=== PATIENT | male | born 1945 | race Caucasian/White ===

== ENCOUNTER 2016-06-27 13:54 | Inpatient (IN) | payer OTHER, MEDICARE ==
[~2016-06-27] VITALS: Ht 172.7 cm; Wt 80.6 kg
--- NOTE | ~2016-06-27 | HC ---
[facility] [place] [address] CONSULTATION Name: KARINAMILADY HOUSER Room #: 441-P [facility] IN M.R.#: [id number] Admission: 06/27/16 Attend Phys: Ankita Reina MD Discharge: 07/01/16 Date of : 41 Report #: [id number] THIS REPORT FOR: //name// CC: Beto Reina DATE OF SERVICE: 06/28/2016 PATIENT IDENTIFICATION: This 71-year-old man is well known to our service from his course with end-stage renal disease. He has diffuse atherosclerotic, status post multiple vascular procedures. He has presented to [facility] twice within the past 7 days with various complaints. He presents to [facility] today due to his frustration with his care. Specifically, he reports that he is short of breath. He does acknowledge; however, that he slept flat in bed through the night with no oxygen. He denies fevers, chills, sweats or other constitutional complaints. PAST MEDICAL HISTORY: Remarkable for diffuse atherosclerotic cardiovascular disease due to longstanding ongoing tobacco abuse. He has aortic stenosis, peripheral vascular disease, COPD. He has known diabetes mellitus. He has undergone previous carotid stent procedure. He has a documented ejection fraction of approximately 50% with basal and inferior hypokinesis and moderate aortic stenosis. MEDICATIONS: On admission include albuterol, allopurinol, aspirin, atorvastatin, Nephrocaps, Tums, carvedilol, Imdur, Nitrostat, Pred Forte eyedrops, Ranexa, Renvela. PERSONAL AND SOCIAL HISTORY: The patient reports that he quit smoking approximately 1 year ago. FAMILY HISTORY: Negative for renal disease. REVIEW OF SYSTEMS: Remarkable for dyspnea on exertion. He denies productive cough or hemoptysis. He denies recent chest pain or palpitations. He denies nausea, vomiting, diarrhea or constipation. PHYSICAL EXAMINATION: GENERAL: Reveals a well developed, chronically ill-appearing male, in no acute distress. VITAL SIGNS: Blood pressure 104/66, temperature 97.6, pulse , respirations 20, O2 saturation 97% on room air. SKIN: Warm and dry. There is no edema present. There is no evidence of cellulitis. HEENT: The head is normocephalic and atraumatic. The sclerae are white and [facility] [address] [place] [address] CONSULTATION Name: MILADY COLLINS Room #: 441-P [facility] IN ..#: [id number] Admission: 06/27/16 Attend Phys: Ankita Reina MD Discharge: 07/01/16 Date of : 41 Report #: [id number] conjunctivae are not injected. The pharynx is benign. NECK: Supple. LUNGS: Adame are grossly clear to percussion and auscultation. CARDIOVASCULAR: Reveals a regular rate and rhythm without rub. There is a grade 2 systolic murmur. ABDOMEN: Soft and nontender, without palpable mass or organomegaly. NEUROLOGIC: Reveals the patient to be alert and cooperative with a nonfocal exam. LABORATORY STUDIES: Available at this time, sodium 131, potassium 4.9, chloride 93, CO2 24, BUN 38, creatinine 6.5. White blood cell count 6400, hemoglobin 11.2, hematocrit 33.3, platelet count 138,000. ASSESSMENT: 1. Chronic obstructive pulmonary disease exacerbation with shortness of breath. There is no evidence of fluid overload at this time. He is showing no signs of need for acute dialysis. 2. End-stage renal disease, on maintenance hemodialysis. 3. Diffuse atherosclerotic. PLAN: We will follow the patient closely and plan dialysis with next regularly scheduled dialysis treatment on Thursday. We will follow him daily and monitor his status. Please see orders. By: 1217 [id number] Herman Stroud MD /nt
--- NOTE | ~2016-06-27 | H ---
[facility] [place] [address] HISTORY AND PHYSICAL Name: MILADY COLLINS Room #: 441-P ADM IN M.R.#: [id number] Admission: 06/27/16 Attend Phys: Ankita Reina MD Discharge: Date of : 41 Report #: [id number] THIS REPORT FOR: //name// CC: Beto Gomez [place] Ankita Reina DATE OF SERVICE: 06/27/2016 The patient is admitted to the hospital on 06/27/2016 CHIEF COMPLAINT: Shortness of breath. HISTORY OF PRESENT ILLNESS: The patient is a 71-year-old man with a very complicated past medical history, who is currently on hemodialysis for end-stage renal disease. He was recently treated at [facility]. The patient states that "his lungs were filled with fluid." He was dialyzed today, and he states that too much fluid taken off. The patient became progressively weak and short of breath. While here, his systolic blood pressure has been between 90 and 100. The patient feels weak and tired. His shortness of breath has already resolved. Chest x-ray that was taken here showed clear lungs. On EKG, the patient has atrial flutter. The patient has history of paroxysmal atrial fibrillation. He has no chest pain. Denies palpitations. PAST MEDICAL HISTORY: 1. End-stage renal disease. 2. Peripheral vascular disease. 3. Coronary artery disease, status post coronary artery bypass grafting surgery. 4. Paroxysmal atrial fibrillation. 5. Chronic obstructive pulmonary disease. 6. Congestive heart failure with diastolic dysfunction. In 01/2016, ejection fraction was 50%, hypokinetic left ventricle, grade 2 diastolic dysfunction. Pulmonary artery pressure 27. 7. Aortic stenosis. 8. Diabetes mellitus type 2. 9. Dyslipidemia. 10. Obstructive sleep apnea. CURRENT MEDICATIONS: Reviewed and documented in the patient's chart. FAMILY HISTORY: Reviewed and not pertinent to the patient's current condition. SOCIAL HISTORY: The patient quit smoking cigarettes over a year ago. He [facility] [address] [place] [address] HISTORY AND PHYSICAL Name: KARINAMILADY HOUSER Room #: [address] [place] [address] IN ..#: [id number] Admission: 06/27/16 Attend Phys: Ankita Reina MD Discharge: Date of : 41 Report #: [id number] reports occasional social alcohol intake. He lives with his . REVIEW OF SYSTEMS: As above in HPI section, all others negative. PHYSICAL EXAMINATION: GENERAL: The patient is an elderly man who is in no apparent distress. VITAL SIGNS: Blood pressure is 89/63, respiration is between 18 and 26, heart rate is 94, temperature is 97.9, and oxygen saturation is between 94 and 100% on room air. HEENT: Pupils are equal. Eye movements are normal. Sclerae are anicteric. NECK: Supple. The patient has no thyromegaly. He has mild JVD. Oral mucosa is moist. RESPIRATORY: Chest moves symmetrically with breathing. The patient has clear respiratory sounds bilaterally. CARDIOVASCULAR: The patient has regular rhythm and rate. He has no murmurs, gallops or rubs. GASTROINTESTINAL: Abdomen is soft, nondistended and nontender. Bowel sounds are present. The patient has no hepatomegaly or splenomegaly. MUSCULOSKELETAL: The patient has no edema, cyanosis or clubbing. Range of motion is normal. Pedal pulses are significantly diminished. NEUROLOGIC: The patient is alert and oriented x 3. SKIN: Reveals no acute skin lesions. LABORATORY DATA: Basic metabolic profile shows normal electrolytes. Creatinine is 4.6, BUN 19. Glucose is 114. AST is 135. Troponin is slightly up at 0.11. CBC with differential shows mild anemia, that is chronic, hemoglobin 10.9. MCV is 105. Platelets are slightly low at 146. On chest x-ray, the patient has clear lungs. EKG shows atrial flutter. ASSESSMENT AND PLAN: A 71-year-old man with multiple medical problems, including end-stage renal disease, who comes to the hospital with shortness of breath. 1. Shortness of breath 2. Acute on chronic problem. As noted, the patient was hospitalized at [facility] for volume overload. He was dialyzed, and last dialysis was this morning. Currently, chest x-ray is clear. Shortness of breath could be associated with generalized weakness and tiredness. His oxygen saturation is normal. The patient is not tachypneic, and now he feels well. He will be monitored. We will consult commercial horticulture instructor for further evaluation. 3. History of coronary artery disease, borderline troponin elevation, and atrial flutter. No chest pain at this time. Mild troponin elevation could be due to reduced creatinine clearance. We will follow serial troponin levels. The patient has history of paroxysmal atrial fibrillation, but in the past, he was in normal sinus rate when he was here. We will ask anesthesiologist assistant certified to evaluate the patient. 4. Chronic obstructive pulmonary disease. The patient has no wheezes, and his [facility] [address] [place] [address] HISTORY AND PHYSICAL Name: MILADY COLLINS Room #: 441-P [facility] IN M.R.#: [id number] Admission: 06/27/16 Attend Phys: Ankita Reina MD Discharge: Date of : 43 Report #: [id number] oxygen saturation is normal. No evidence of exacerbation. 5. Diabetes mellitus type 2. We will stop glipizide, and treat the patient with sliding scale insulin. Blood sugars will be checked before meal and before sleep. Sliding scale insulin at this time will be an alternative option. 6. Deep venous thrombosis prophylaxis. Subcutaneous heparin. <ELECTRONICALLY SIGNED> By: Ankita Reina MD 06/30/16 1247 03 40 Ankita Reina MD /nt
--- NOTE | ~2016-06-27 | HC ---
[facility] [place] [address] CONSULTATION Name: MILADY COLLINS Room #: 441-P ADM IN M.R.#: [id number] Admission: 06/27/16 Attend Phys: Ankita Reina MD Discharge: Date of : 43 Report #: [id number] THIS REPORT FOR: //name// CC: Beto Reina REASON FOR CONSULTATION: Shortness of breath. HISTORY OF PRESENT ILLNESS: The patient is a 71-year-old with an extensive cardiac history including coronary artery disease, aortic stenosis, peripheral vascular disease, COPD; end-stage renal disease, on dialysis, who was recently hospitalized at [facility] with shortness of breath. We do not have records from this visit. Apparently, he says he had fluid on the lungs. He was diuresed. He reports that he underwent a stress test and he thinks that this was normal. He also was found to have some gallstones. He was discharged on Thursday and then was undergoing dialysis yesterday and started experiencing worsening shortness of breath, some nausea and some weakness and therefore he was admitted to the hospital. He is currently without chest pain. He denies any exertional chest pain or chest pressure. He does report that a few weeks ago, he had some shortness of breath prior to the shower, he popped a nitroglycerin and this is improved. He denies any PND, orthopnea. He denies presyncope or syncope. REVIEW OF SYSTEMS: GENERAL: No fevers, chills. HEENT: No sore throat. CARDIOVASCULAR: As above. PULMONARY: No productive cough. GASTROINTESTINAL: No nausea, vomiting currently. GENITOURINARY: No dysuria. MUSCULOSKELETAL: No myalgias, arthralgias. ENDOCRINE: No heat or cold intolerance. NEUROLOGIC: No focal weakness. PAST MEDICAL HISTORY: 1. Coronary artery disease, status post TN and CABG in 1995. 2. Moderate aortic stenosis. 3. Echo 01/2016 shows an EF of 50% with basal inferior hypokinesis of moderate aortic stenosis. 4. History of atrial fibrillation. 5. COPD. 6. Hypertension. 7. Diabetes. 8. End-stage renal disease, on dialysis. 9. Peripheral vascular disease. 10. Carotid disease, status post stent. [facility] [address] [place] [address] CONSULTATION Name: MILADY COLLINS Room #: 441-P [facility] IN ..#: [id number] Admission: 06/27/16 Attend Phys: Ankita Reina MD Discharge: Date of : 41 Report #: [id number] 11. Aortic stent graft 2014 with resultant embolic event to the kidneys. 12. Right lower extremity DVT, 2014. 13. CVA in 2013. SOCIAL HISTORY: Quit smoking a year ago. FAMILY HISTORY: Noncontributory. ALLERGIES: Include LISINOPRIL, CONTRAST, MORPHINE and PLAVIX. MEDICATIONS: Reviewed. PHYSICAL EXAMINATION: VITAL SIGNS: Temperature is 36.8, pulse 70, respiration 20, blood pressure 86/51, sats 100% on room air. GENERAL: He is in no acute distress. HEENT: Sclerae anicteric, oropharynx is clear. NECK: Supple with no carotid bruits. HEART: Irregularly irregular. He does not have elevated jugular venous pressure and he does not have a positive hepatojugular reflex. LUNGS: Clear to auscultation bilaterally. ABDOMEN: Soft, nontender, nondistended with no hepatosplenomegaly. EXTREMITIES: There is no clubbing, cyanosis, edema and peripheral pulses in the dorsalis pedis and posterior tibialis are 1+. NEUROLOGICAL: Cranial nerves 2-12 are intact. LABORATORY DATA: White count 6.4, hemoglobin 11.2, platelets are 138. Sodium is 131, potassium 4.9, BUN 38, creatinine 6.5. Troponin is 0.1 followed by 0.11. ProBNP is 18,413, AST is 135, ALT is 227, alkaline phosphatase is 187. His chest x-ray shows no evidence of pulmonary edema, slightly prominent heart size, but otherwise is essentially normal. His 12-lead EKG shows that he is in typical atrial flutter, heart rate of 99 beats per minute with occasional PVCs and a preexisting left bundle branch block. His EKG from 01/2016 showed sinus rhythm with a preexisting left bundle branch block. ASSESSMENT: 1. Shortness of breath. 2. Coronary artery disease. 3. Aortic stenosis. 4. End-stage renal disease. 5. Peripheral vascular disease. 6. Typical atrial flutter. 7. History of atrial fibrillation. 8. Hypertension. 9. Diabetes. 10. Gallstones. [address] [address] CONSULTATION Name: MILADY COLLINS Room #: 441-P [facility] IN ..#: [id number] Admission: 06/27/16 Attend Phys: Ankita Reina MD Discharge: Date of : 43 Report #: [id number] 11. Elevated liver function tests. PLAN: In summary, patient is a 71-year-old with known coronary artery disease, EF of 50% with moderate aortic stenosis, presenting with worsening shortness of breath. He has a slightly elevated troponin, which I think is related to his end-stage renal disease. He does have an elevated proBNP, but again this could be elevated due to his end-stage renal disease as well. Clinically, on exam, he does not appear to be volume overloaded. His chest x-ray appears clear, and he has no edema. As such, I do not think any major adjustments to his current dialysis fluid volume status needs to be adjusted. It is possible his shortness of breath may be related to his known coronary artery disease. Apparently, he did have a recent stress test up in [place]. We will try to obtain these records. Dr. Kinney will see the patient on Thursday and make any plans if repeat catheterization would be something to consider in him. Further, his some of the shortness of breath may be related to his atrial flutter; however, this appears to be asymptomatic and the rates appear to be well controlled. We will currently continue with an aspirin therapy and I will discuss with Dr. Kinney and Nephrology whether or not anticoagulation is a good option in this patient's case. Thank you for allowing me to participate in his care. We will continue to follow. By: 1414 [id number] Dane Montalvo MD /nt
--- NOTE | ~2016-06-27 | 2DMMODE ---
[facility] [address] [place] [address] 2 D/M-MODE ECHOCARDIOGRAM Name: MILADY COLLINS Room #: 441-P [facility] IN M.R.#: [id number] Admission: 06/27/16 Attend Phys: Ankita Reina Discharge: Date of : 41 Date of Service: 06/30/16 1130 Report #: [id number] THIS REPORT FOR: //name// APPROVED REPORT Study performed: 06/30/2016 10:38:29 EXAM: Comprehensive 2D, Doppler, and color-flow Echocardiogram Patient Location: Echo lab Room #: [facility] Blood Pressure: 92/53 mmHg HR: 70 bpm Other Information Study Quality: Adequate/patient very uncomfortable during exam Indications Congestive Heart Failure Dyspnea Hx: CABG, CHF, , HTN, COPD, DM Echo Enhancing Agent Indication: Endocardial border delineation Agent/Amount Used: Definity cc 2D Dimensions RVDd: 55.73 mm LVEF(%): 17.69 (>50%) IVSd: 12.94 (7-11mm) LVOT Diam: 19.65 (18-24mm) LVDd: 57.89 mm PWd: 11.81 (7-11mm) Ascending Ao: 31.14 (22-36mm) LVDs: 53.20 (25-40mm) Aortic Root: 31.17 mm Avery's LVEF: 17.69 % Volumes Left Atrial Volume (Systole) Single Plane 4CH: 94.81 mL Single Plane 2CH: 103.36 mL LA ESV Index: 56.00 mL/m2 Aortic Valve AoV Peak Bob.: 2.18 m/s [facility] [address] [place] [address] 2 D/M-MODE ECHOCARDIOGRAM Name: MILADY COLLINS Room #: 441-P [facility] IN ..#: [id number] Admission: 06/27/16 Attend Phys: Ankita Reina Discharge: Date of : 41 Date of Service: 06/30/16 1130 Report #: [id number] AO Peak Gr.: 19.09 mmHg LVOT Max P.43 mmHg AO Mean Gr.: 10.86 mmHg AO V2 Mean: 1.57 m/s LVOT Max V: 0.60 m/s AO V2 VTI: 45.68 cm LUH Vmax: 0.83 cm2 Mitral Valve E/A Ratio: 4.2 MV Decel. Time: 120.05 ms MV E Max Bob.: 1.14 m/s MV A Bob.: 0.27 m/s MV PHT: 34.81 ms IVRT: 46.14 ms Pulmonary Valve PV Peak Bob.: 0.55 m/s PV Peak Gr.: 1.19 mmHg Tricuspid Valve TR Peak Bob.: 2.95 m/s RAP Estimate: 15.00 mmHg TR Peak Gr.: 34.80 mmHg RVSP: 50.00 mmHg Left Ventricle Left ventricle is mildly dilated. Mild concentric left ventricular hypertrophy. Left ventricular systolic function is severely decreased. LVEF is 20-25%. Grade IV - fixed restrictive diastolic dysfunction. Right Ventricle Right ventricle is dilated. Right ventricle is hypokinetic. Atria Left atrium is dilated. Right atrium is dilated. Aortic Valve Aortic valve is moderately thickened and calcified. Mild aortic regurgitation. Moderate to severe aortic stenosis. LUH by continuity equation is 0.9cm2 Mitral Valve The mitral valve is normal in structure. Mild mitral annular calcification. Moderate to severe mitral regurgitation with an eccentric jet No evidence of mitral valve stenosis. Tricuspid Valve The tricuspid valve is normal in structure. There is moderate [facility] [address] [place] [address] 2 D/M-MODE ECHOCARDIOGRAM Name: KARINAMILADY HOUSER Room #: 441-P [facility] IN ..#: [id number] Admission: 06/27/16 Attend Phys: Ankita Reina Discharge: Date of : 41 Date of Service: 06/30/16 1130 Report #: [id number] tricuspid regurgitation. The right atrial pressure is estimated at 15 mmHg. There is moderate pulmonary hypertension with an estimated PAP of 50mmHg. Pulmonic Valve The pulmonary valve is normal in structure. Trace pulmonic regurgitation. Great Vessels The aortic root is normal in size. The ascending aorta is normal in size. IVC is dilated and collapses <50% with inspiration. Pericardium There is no pericardial effusion. <Conclusion> Left ventricle is mildly dilated. Mild concentric left ventricular hypertrophy. LVEF is 20-25%. Right ventricle is dilated. Right ventricle is hypokinetic. Left atrium is dilated. Right atrium is dilated. Aortic valve is moderately thickened and calcified. Moderate to severe aortic stenosis. LUH by continuity equation is 0.9cm2 Mild aortic regurgitation. The mitral valve is normal in structure. Mild mitral annular calcification. Moderate to severe mitral regurgitation with an eccentric jet The tricuspid valve is normal in structure. There is moderate tricuspid regurgitation. The right atrial pressure is estimated at 15 mmHg. There is moderate pulmonary hypertension with an estimated PAP of 50mmHg. Trace pulmonic regurgitation. IVC is dilated and collapses <50% with inspiration. <ELECTRONICALLY SIGNED> By: Miles Mcintosh MD 06/30/16 1130 1130 1130 Miles Mcintosh MD /INF
--- NOTE | ~2016-06-27 | EKG ---
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 Electronically Signed On 06-27-2016 17:02:51 CDT by Dane Montalvo [email or web address] <ELECTRONICALLY SIGNED> By: Dane Montalvo MD 06/27/16 1702 1531 1531 MD ORALIA Fox
[2016-06-27 13:54] VITALS: BP 92/60
[~2016-06-27 13:54] MED LIST: ALLOPURINOL 10100 M1 PO; ASPIRIN325 PO; ATORVASTATIN CA20 MG PO; CARDIZEM CD 30300 M1 PO; CARDIZEM CD240 MG PO; COLACE 100 MG100 MG PO; COLACE100 MG PO; COREG25 MG PO; COUMADIN 4 MG TA4 M1 PO; COUMADIN 5 MG TA5 M1 PO; DEMADEX20 MG PO; DOXAZOSIN MESYLA8 MG PO; FLOMAX0.4 MG PO; GLIPIZIDE5 MG PO; IMDUR 60 MG TAB60 M1 PO; LASIX 40 MG TAB40 M2 PO; MIRALAX17 GM PO; NITROSTAT0.4 MG SUBLING; NORCO 5-325 TA1 EACH PO; NORVASC10 MG PO; NORVASC2.5 MG PO; PACERONE 200 M200 M1 PO; PLAVIX 75 MG TA75 M1 PO; RANEXA500 MG PO; SIMVASTATIN40 MG PO; VITAMIN D1000 UNIT PO; ZOCOR20 MG PO
[2016-06-27 16:14] LABS: HEMATOCRIT 32.3 % (42.0-52.0); HEMOGLOBIN 10.9 gm/dL (14.0-18.0); MCH 35.9 pg (26.0-34.0); MCHC 33.9 g/dL (28.0-37.0); MCV 105.8 fL (80.0-100.0); RBC 3.05 mil/uL (4.50-6.00); RDW 15.8 % (10.5-14.5); WBC 8.6 thou/uL (4.0-11.0)
[2016-06-27 16:15] LABS: MANUAL DIFF YES
[2016-06-27 16:25] LABS: CALCIUM 8.2 mg/dL (8.5-10.1); CREATININE 4.6 mg/dL (0.7-1.3); POTASSIUM 3.7 mmol/L (3.5-5.1)
[2016-06-27 16:33] LABS: ABSOLUTE NEUTROPHILS 7.2 thou/uL (1.4-8.2); ANISOCYTOSIS 1+; MACROCYTES 1+; POLYCHROMASIA 1+; TOTAL CELL COUNT 100
[2016-06-27 16:36] LABS: PLATELET COUNT 146 thou/uL (150-400)
[2016-06-27 16:37] LABS: ALBUMIN 3.5 g/dL (3.4-5.0); TOTAL BILIRUBIN 0.9 mg/dL (<0.1-1.0); TOTAL PROTEIN 7.3 g/dL (6.4-8.2); TROPONIN-I 0.11 ng/mL (<0.04-0.07)
[2016-06-27] MEDS ORDERED: KETOROLAC TROMET5 ML OP (18:21)
[2016-06-27] MEDS ORDERED: CIPROFLOXIN HC2.5 M1 OPHTHALMIC (18:21)
[2016-06-27] MEDS ORDERED: PRED FORTE 1% EY5 M1 OP (18:22)
[2016-06-27] MEDS ORDERED: VENTOLIN HFA 1818 GM INH (18:23)
[2016-06-27] MEDS ORDERED: TUMS PO (18:24)
[2016-06-27 20:02] VITALS: BP 100/70
[2016-06-27 20:15] VITALS: BP 116/78
[2016-06-27 20:57] LABS: TSH 2.478 uIU/mL (0.358-3.740)
[2016-06-27 23:55] VITALS: BP 102/64
[2016-06-28 04:30] VITALS: BP 104/66
[2016-06-28 06:34] LABS: ABSOLUTE NEUTROPHILS 5.5 thou/uL (1.4-8.2); BASOPHILS 0.2 % (0.0-2.0); EOSINOPHILS 0.1 % (0.0-3.0); HEMATOCRIT 33.3 % (42.0-52.0); HEMOGLOBIN 11.2 gm/dL (14.0-18.0); LYMPHOCYTES 10.8 % (24.0-44.0); MCH 36.1 pg (26.0-34.0); MCHC 33.7 g/dL (28.0-37.0); MCV 107.3 fL (80.0-100.0); PLATELET COUNT 138 thou/uL (150-400); POLYS 84.9 % (36.0-66.0); RDW 15.7 % (10.5-14.5); WBC 6.4 thou/uL (4.0-11.0)
[2016-06-28 06:37] LABS: MANUAL DIFF NO
[2016-06-28 08:42] VITALS: BP 92/58
[2016-06-28 11:06] LABS: CALCIUM 8.5 mg/dL (8.5-10.1); TROPONIN-I 0.11 ng/mL (<0.04-0.07)
[2016-06-28 11:09] LABS: CREATININE 6.5 mg/dL (0.7-1.3); POTASSIUM 4.9 mmol/L (3.5-5.1)
[2016-06-28 11:34] VITALS: BP 86/51
[2016-06-28 16:05] VITALS: BP 81/52
[2016-06-28 19:43] VITALS: BP 82/49
[2016-06-28 23:59] VITALS: BP 86/56
[2016-06-29 04:21] VITALS: BP 75/45
[2016-06-29 08:18] VITALS: BP 82/49
[2016-06-29 12:12] VITALS: BP 88/55
[2016-06-29 16:27] VITALS: BP 79/49
[2016-06-29 19:53] VITALS: BP 90/56
[2016-06-29 20:20] VITALS: BP 88/64
[2016-06-30 04:41] VITALS: BP 94/57
[2016-06-30 07:10] LABS: ALBUMIN 3.4 g/dL (3.4-5.0); CALCIUM 8.5 mg/dL (8.5-10.1); PHOSPHORUS 9.3 mg/dL (2.5-4.9); POTASSIUM 5.8 mmol/L (3.5-5.1)
[2016-06-30 07:17] LABS: CREATININE 9.1 mg/dL (0.7-1.3)
[2016-06-30 08:00] VITALS: BP 92/53
[2016-06-30 18:11] VITALS: BP 106/67
[2016-06-30 19:39] VITALS: BP 110/68
[2016-07-01 04:38] VITALS: BP 102/54
[2016-07-01 08:00] VITALS: BP 103/58
[2016-07-01] MEDS ORDERED: ACCUNEB SO1.25 MG/1 INH (12:11)
[2016-07-01] MEDS ORDERED: CARVEDILOL3.125 MG PO (12:11)
[2016-07-01] MEDS ORDERED: NEPHROCAPS SOFT1 CAP PO (12:11)
[2016-07-01] MEDS ORDERED: RENVELA800 MG PO (12:11)
[2016-07-01 12:17] VITALS: BP 110/68
[2016-07-01 12:44] VITALS: BP 110/68
[2016-07-01] MEDS ORDERED: ULTRA-LIGHT RO1 EACH MC (13:01)
[2016-07-01 13:17] VITALS: BP 110/68
[2016-07-01 13:43] VITALS: BP 110/68
== END 2016-07-01 14:00 | disposition home health service (06) | DRG 205 ==
LOC: ER 13:54 → 4S 17:18 → EROBS 17:18 → 4S 19:58
PROVIDERS: Internal Medicine Endocrinology, Diabetes & Metabolism; Internal Medicine Nephrology; Nurse Practitioner Family
PROC: 5A1D00Z (ICD-10-PCS; principal; 2016-06-30)
DX: J98.11 Atelectasis (principal); N18.6 End stage renal disease; I13.2 Hypertensive heart and chronic kidney disease with heart failure and with stage 5 chronic kidney disease, or end stage renal disease; E87.1 Hypo-osmolality and hyponatremia; I48.3 Typical atrial flutter; I50.30 Unspecified diastolic (congestive) heart failure; R06.02 Shortness of breath; E78.5 Hyperlipidemia, unspecified; M10.9 Gout, unspecified; D64.9 Anemia, unspecified; I35.0 Nonrheumatic aortic (valve) stenosis; E11.22 Type 2 diabetes mellitus with diabetic chronic kidney disease; K80.80 Other cholelithiasis without obstruction; J44.9 Chronic obstructive pulmonary disease, unspecified; E11.51 Type 2 diabetes mellitus with diabetic peripheral angiopathy without gangrene; I25.10 Atherosclerotic heart disease of native coronary artery without angina pectoris; I48.0 Paroxysmal atrial fibrillation; G47.33 Obstructive sleep apnea (adult) (pediatric); I95.9 Hypotension, unspecified; I25.5 Ischemic cardiomyopathy; I70.90 Unspecified atherosclerosis; Z95.1 Presence of aortocoronary bypass graft; Z87.891 Personal history of nicotine dependence; Z86.718 Personal history of other venous thrombosis and embolism; Z88.8 Allergy status to other drugs, medicaments and biological substances; Z88.6 Allergy status to analgesic agent; Z79.82 Long term (current) use of aspirin; Z79.899 Other long term (current) drug therapy; I25.2 Old myocardial infarction; Z95.5 Presence of coronary angioplasty implant and graft; Z91.041 Radiographic dye allergy status
CPT/HCPCS: 10100; 32100

== ENCOUNTER 2016-07-08 06:47 | Emergency (ER) | payer OTHER, MEDICARE ==
[~2016-07-08] VITALS: Ht 172.7 cm; Wt 81.7 kg
--- NOTE | ~2016-07-08 | EKG ---
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 07/09/16 0653 1137 113 Beto iKnney MD, [facility] /EPI
--- NOTE | ~2016-07-08 | EKG ---
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
[~2016-07-08 06:47] MED LIST changes: +ACCUNEB SO1.25 MG/1 INH; +CARVEDILOL3.125 MG PO; +CIPROFLOXIN HC2.5 M1 OPHTHALMIC; +KETOROLAC TROMET5 ML OP; +NEPHROCAPS SOFT1 CAP PO; +PRED FORTE 1% EY5 M1 OP; +RENVELA800 MG PO; +TUMS PO; +ULTRA-LIGHT RO1 EACH MC; +VENTOLIN HFA 1818 GM INH
[2016-07-08 07:14] LABS: ABSOLUTE NEUTROPHILS 5.8 thou/uL (1.4-8.2); BASOPHILS 1.5 % (0.0-2.0); EOSINOPHILS 1.2 % (0.0-3.0); HEMATOCRIT 31.7 % (42.0-52.0); HEMOGLOBIN 10.4 gm/dL (14.0-18.0); LYMPHOCYTES 21.3 % (24.0-44.0); MCH 36.8 pg (26.0-34.0); MCHC 32.7 g/dL (28.0-37.0); MCV 112.3 fL (80.0-100.0); MONOCYTES 9.2 % (1.0-8.0); PLATELET COUNT 147 thou/uL (150-400); POLYS 66.8 % (36.0-66.0); RBC 2.83 mil/uL (4.50-6.00); WBC 8.7 thou/uL (4.0-11.0)
[2016-07-08 07:18] LABS: MANUAL DIFF NO
[2016-07-08 07:28] LABS: INR 1.4; PROTIME 14.1 Seconds (9.3-11.4)
[2016-07-08] MEDS ORDERED: TRIPHROCAPS SOFT1 MG PO (07:28)
[2016-07-08] MEDS ORDERED: CARVEDILOL6.25 MG PO (07:31)
[2016-07-08 07:32] LABS: ANION GAP 16 mmol/L (7-16); BUN 32 mg/dL (7-18); CALCIUM 7.6 mg/dL (8.5-10.1); CHLORIDE 95 mmol/L (98-107); CO2 19 mmol/L (21-32); GLUCOSE 124 mg/dL (74-106); POTASSIUM 5.5 mmol/L (3.5-5.1)
[2016-07-08] MEDS ORDERED: GLIPIZIDE ER5 MG PO (07:32)
[2016-07-08 07:35] LABS: SODIUM 130 mmol/L (136-145)
[2016-07-08 07:46] LABS: NT-PRO BRAIN NAT PEPTIDE 12941 pg/mL (<300); TROPONIN-I < 0.04 ng/mL (<0.04-0.07)
[2016-07-08 09:02] LABS: ANISOCYTOSIS 2+; LARGE PLATELETS FEW; MACROCYTES 2+; PLATELET ESTIMATE NORMAL; POLYCHROMASIA SLIGHT
== END 2016-07-08 08:59 | disposition home or self-care (01) ==
LOC: ER 06:47
PROVIDERS: Emergency Medicine
DX: R55 Syncope and collapse (principal); I25.2 Old myocardial infarction; E78.5 Hyperlipidemia, unspecified; E11.22 Type 2 diabetes mellitus with diabetic chronic kidney disease; I13.0 Hypertensive heart and chronic kidney disease with heart failure and stage 1 through stage 4 chronic kidney disease, or unspecified chronic kidney disease; N18.4 Chronic kidney disease, stage 4 (severe); I50.32 Chronic diastolic (congestive) heart failure; J44.9 Chronic obstructive pulmonary disease, unspecified; G47.30 Sleep apnea, unspecified; Z95.5 Presence of coronary angioplasty implant and graft; Z86.2 Personal history of diseases of the blood and blood-forming organs and certain disorders involving the immune mechanism; Z86.73 Personal history of transient ischemic attack (TIA), and cerebral infarction without residual deficits; Z91.041 Radiographic dye allergy status; Z88.8 Allergy status to other drugs, medicaments and biological substances; Z87.891 Personal history of nicotine dependence